=== PATIENT | male | born 1965 | race Hispanic/Latino ===

== ENCOUNTER 2019-03-21 23:15 | Emergency (ER) | payer SELFPAY | END 2019-03-21 23:59 | disposition home or self-care (01) | LOC: SCSER 23:15 | DX: M79.661 Pain in right lower leg (principal); I10 Essential (primary) hypertension | CPT/HCPCS: 99283 ==

== ENCOUNTER 2019-05-21 12:40 | Emergency (ER) | payer SELFPAY ==
--- NOTE | 2019-05-21 13:29 | RAD ---
XR Foot Rt 3 View STANDARD HISTORY: Right foot pain FINDINGS: No fracture or dislocation is identified. Posterior and plantar calcaneal spurs are present.
== END 2019-05-21 13:42 | disposition home or self-care (01) ==
LOC: SCSER 12:40
DX: G89.29 Other chronic pain (principal); M25.571 Pain in right ankle and joints of right foot; B35.3 Tinea pedis; E11.9 Type 2 diabetes mellitus without complications; F17.210 Nicotine dependence, cigarettes, uncomplicated; Z71.6 Tobacco abuse counseling
CPT/HCPCS: 99406

== ENCOUNTER 2023-09-18 04:10 | Emergency (ER) | payer SELFPAY ==
[2023-09-18] MEDS ORDERED: Sodium Bicarb 50 MEQ/50 ML Abboject 8.4% SYRINGE ONE (04:12)
[2023-09-18] MEDS ORDERED: EPINEPHrine 1 MG/10 ML Abboject SYRINGE ONE (04:12)
[2023-09-18] MEDS ORDERED: Calcium Chloride 1 GM/10 ML Abboject SYRINGE ONE (04:12)
== END 2023-09-18 04:34 | disposition expired ==
LOC: ERS 04:10
DX: I46.9 Cardiac arrest, cause unspecified (principal); F17.210 Nicotine dependence, cigarettes, uncomplicated
CPT/HCPCS: 92950; J0171